=== PATIENT | female | born 1960 | race African-American/Black ===

== ENCOUNTER 2021-02-24 15:50 | Inpatient (IN) | payer OTHER ==
[~2021-02-24] VITALS: Ht 157.5 cm; Wt 81.2 kg
[2021-02-24] MEDS ORDERED: HYDRALAZINE 20MG/ML VIAL IV ONE (16:45)
[2021-02-24] MEDS ORDERED: DEXTROSE 50% WATER 50ML SYRINGE IV ONE (16:45)
[2021-02-24 16:56] LABS: BASOPHILS % 0.5 % (0.0-2.0); HEMATOCRIT. 24.6 % (36.0-48.0); HEMOGLOBIN. 8.3 g/dL (12.0-16.0); LYMPHOCYTES % 24.1 % (20.0-50.0); MEAN CORPUSCULAR VOLUME 121.5 fL (81.0-99.0); MONOCYTES % 3.9 % (2.0-8.0); NEUTROPHILS % 70.5 % (40.0-76.0); RED BLOOD CELL COUNT 2.03 mill/uL (4.2-5.4); RED CELL DISTRIBUTION WIDTH 18.9 % (11.6-14.6)
[2021-02-24] MEDS ORDERED: HALOPERIDOL LACTATE 5MG/ML VIAL IM ONE ×2 (17:00→18:15)
[2021-02-24 17:08] LABS: CHLORIDE 99 mEq/L (98-107)
[2021-02-24 17:12] LABS: ETHANOL BLOOD < 10 mg/dL
[2021-02-24 17:38] LABS: PLATELET ESTIMATE DECREASED
[2021-02-24 17:41] LABS: MEAN PLATELET VOLUME 8.8 fl (7.4-10.4); PLATELET 70 x1000/uL (130-400)
[2021-02-24] MEDS ORDERED: LIDOCAINE HCL 1% 20ML VIAL (Pyxis) INJ INFIL STA (18:04)
[2021-02-24] MEDS ORDERED: PIPERACILLIN/TAZ 3.375G PREMIX 50 ML IV NR (18:15)
[2021-02-24] MEDS ORDERED: PIPERACILLIN/TAZOBACTAM 3.375GM/50ML PREMIX IV ONE (18:15)
[2021-02-24] MEDS ORDERED: FENTANYL CITRATE/PF 50MCG/ML 2ML VIAL IV ONE (18:15)
[2021-02-24] MEDS ORDERED: LIDOCAINE HCL 1% 10 MG/ML 10ML VIAL INJ STA (18:22)
[2021-02-24] MEDS ORDERED: SODIUM CHLORIDE 0.9% 500 ML IV ONE (18:30)
[2021-02-24 18:34] LABS: PROTHROMBIN TIME > 100.0 sec (9.6-11.0)
[2021-02-24 18:37] LABS: INR > 10.0
[2021-02-24] MEDS ORDERED: PHYTONADIONE 10 MG in DEXTROSE 5% WATER 50 ML SUBCUT NR (19:00)
[2021-02-24] MEDS ORDERED: SODIUM CHLORIDE 0.9% 1,000 ML IV ONE ×2 (20:45)
[2021-02-24] MEDS ORDERED: VANCOMYCIN 1 G PREMIX 200 ML IV NR (20:45)
[2021-02-24] MEDS ORDERED: FOLIC ACID 1 MG, THIAMINE HCL 100 MG, MVI, ADULT NO.1 10 ML in DEXTROSE 5% WATER 1,000 ML IV NR (20:45)
[2021-02-24 21:29] LABS: HEPATITIS B SURFACE ANTIGEN NEGATIVE
[2021-02-24] MEDS ORDERED: HALOPERIDOL LACTATE 5MG/ML VIAL IM NR (21:45)
[2021-02-24] MEDS ORDERED: PHYTONADIONE 10MG/ML AMP ONE (21:50)
[2021-02-24] MEDS ORDERED: FENTANYL CITRATE/PF 50MCG/ML 2ML VIAL IV PRN (23:00)
[2021-02-24] MEDS ORDERED: IOHEXOL-300 100 ML BOTTLE ONE (23:17)
[2021-02-25] VITALS (12 sets, daily range): BP systolic 91–125; BP diastolic 33–75
[2021-02-25] MEDS ORDERED: LACTULOSE 20G/30ML UDC PO PRN (03:15)
[2021-02-25] MEDS ORDERED: ONDANSETRON HCL 4MG/2ML INJ IV PRN (03:15)
[2021-02-25] MEDS: LORAZEPAM 2MG/ML CPJ IV PRN ×2 (05:09→21:21)
[2021-02-25] MEDS ORDERED: MAGNESIUM/ALUMINUM HYDROXIDE/SIMETHICONE 30ML UDC PO PRN (07:45)
[2021-02-25] MEDS ORDERED: CLONIDINE 0.1MG TABLET PO PRN (07:45)
[2021-02-25] MEDS ORDERED: TRAMADOL 50MG TABLET PO PRN (07:45)
[2021-02-25] MEDS ORDERED: NALOXONE HCL 0.4MG/ML VIAL IV PRN (08:00)
[2021-02-25 08:09] LABS: BG BASE EXCESS -9.4 mmol/L (-2.0-2.0); BG CARBOXYHEMOGLOBIN 0.4 % (0.5-1.5); BG DEOXYHEMOGLOBIN 8.3 % (0.0-5.0); BG FRACTION INSPIRED OXYGEN 21; BG HCO3 ACT 14.7 mmol/L (22.0-26.0); BG METHEMOGLOBIN 0.2 % (0.0-1.5); BG OXYGEN SATURATION 91.6 % (92.0-98.5); BG OXYHEMOGLOBIN 91.1 % (94.0-97.0); BG PCO2 25.8 mmHg (35.0-45.0); BG PH 7.374 (7.350-7.450); BG PO2 70.3 mmHg (75.0-100.0); BG SAMPLE SITE LEFT RADIAL; BG TOTAL HEMOGLOBIN 7.9 g/dL (12.0-18.0); BG VENT MODE ROOM AIR
[2021-02-25] MEDS: PANTOPRAZOLE SODIUM 40 MG/VIAL IV SCH (09:27)
[2021-02-25] MEDS: FUROSEMIDE 40MG TABLET PO SCH (09:28)
[2021-02-25 10:28] LABS: HEMATOCRIT 24.9 % (36.0-48.0); HEMOGLOBIN 8.3 g/dL (12.0-16.0); MEAN CORPUSCULAR HEMOGLOBIN 41.7 pg (28.0-32.0); MEAN CORPUSCULAR VOLUME 125.6 fL (81.0-99.0); PLATELET 52 x1000/uL (130-400); RED BLOOD CELL COUNT 1.98 mill/uL (4.2-5.4); RED CELL DISTRIBUTION WIDTH 20.2 % (11.6-14.6)
[2021-02-25 10:51] LABS: CHLORIDE 98 mEq/L (98-107)
[2021-02-25 11:08] LABS: INR 3.1; PROTHROMBIN TIME 30.8 sec (9.6-11.0)
[2021-02-25] MEDS ORDERED: POTASSIUM CHLORIDE 20MEQ TABLET SR PO NR (13:30)
[2021-02-25] MEDS: LACTULOSE 20G/30ML UDC PO SCH ×2 (15:33→21:22)
[2021-02-25] MEDS: KCL 20MEQ/100ML PREMIX 100 ML IV SCH ×2 (15:43→17:57)
[2021-02-25] MEDS: RIFAXIMIN 200MG TABLET PO SCH (21:22)
[2021-02-25] MEDS: CEFTRIAXONE 1,000 MG in DEXTROSE 5% WATER 50 ML IV SCH (22:28)
[2021-02-25 23:05] LABS: BG BASE EXCESS -3.8 mmol/L (-2.0-2.0); BG CARBOXYHEMOGLOBIN 0.3 % (0.5-1.5); BG DEOXYHEMOGLOBIN 43.3 % (0.0-5.0); BG FRACTION INSPIRED OXYGEN 100; BG HCO3 ACT 21.2 mmol/L (22.0-26.0); BG METHEMOGLOBIN 0.7 % (0.0-1.5); BG OXYGEN SATURATION 56.3 % (92.0-98.5); BG OXYHEMOGLOBIN 55.7 % (94.0-97.0); BG PCO2 37.9 mmHg (35.0-45.0); BG PH 7.365 (7.350-7.450); BG PO2 34.5 mmHg (75.0-100.0); BG SAMPLE SITE RIGHT BRACHIAL; BG TOTAL HEMOGLOBIN 7.5 g/dL (12.0-18.0); BG VENT MODE MASK - NRB
[2021-02-25 23:41] LABS: BG BASE EXCESS -6.2 mmol/L (-2.0-2.0); BG CARBOXYHEMOGLOBIN 0.1 % (0.5-1.5); BG DEOXYHEMOGLOBIN 21.4 % (0.0-5.0); BG FRACTION INSPIRED OXYGEN 100; BG HCO3 ACT 19.2 mmol/L (22.0-26.0); BG METHEMOGLOBIN 0.3 % (0.0-1.5); BG OXYGEN SATURATION 78.5 % (92.0-98.5); BG OXYHEMOGLOBIN 78.2 % (94.0-97.0); BG PCO2 37.5 mmHg (35.0-45.0); BG PH 7.328 (7.350-7.450); BG PO2 51.5 mmHg (75.0-100.0); BG TOTAL HEMOGLOBIN 8.2 g/dL (12.0-18.0); BG VENT MODE MASK - NRB
[2021-02-26] VITALS (19 sets, daily range): BP systolic 86–136; BP diastolic 47–91
[2021-02-26 00:13] LABS: HEMATOCRIT 21.6 % (36.0-48.0); HEMOGLOBIN 7.4 g/dL (12.0-16.0)
[2021-02-26 00:24] LABS: INR 2.1; PROTHROMBIN TIME 21.7 sec (9.6-11.0)
[2021-02-26 00:26] LABS: TOTAL IRON BINDING CAPACITY 83 ug/dL (250-450)
[2021-02-26 01:26] LABS: BG BASE EXCESS -4.5 mmol/L (-2.0-2.0); BG CARBOXYHEMOGLOBIN 0.3 % (0.5-1.5); BG DEOXYHEMOGLOBIN 5.3 % (0.0-5.0); BG HCO3 ACT 19.3 mmol/L (22.0-26.0); BG METHEMOGLOBIN 0.5 % (0.0-1.5); BG OXYGEN SATURATION 94.7 % (92.0-98.5); BG OXYHEMOGLOBIN 93.9 % (94.0-97.0); BG PCO2 29.9 mmHg (35.0-45.0); BG PH 7.427 (7.350-7.450); BG PO2 79.7 mmHg (75.0-100.0); BG TOTAL HEMOGLOBIN 7.6 g/dL (12.0-18.0)
[2021-02-26] MEDS: IPRATROPIUM/ALBUTEROL 0.5-3(2.5)MG/3ML NEB HHN SCH ×5 (01:55→16:00)
[2021-02-26] MEDS ORDERED: DEXT 5%/0.45% NACL 1000ML 1,000 ML IV SCH (02:00)
[2021-02-26] MEDS: LACTULOSE 20G/30ML UDC PO SCH ×3 (05:37→22:03)
[2021-02-26] MEDS ORDERED: SODIUM CHLORIDE 0.9% 1000ML BAG (SEPSIS BOLUS) IV ONE (06:45)
[2021-02-26] MEDS ORDERED: SODIUM CHLORIDE 0.9% 500 ML IV SCH (06:45)
[2021-02-26 07:26] LABS: CHLORIDE 104 mEq/L (98-107)
[2021-02-26 07:34] LABS: PHOSPHORUS 1.8 mg/dL (2.5-4.9)
[2021-02-26 07:36] LABS: T4 FREE 1.23 ng/dL (0.76-1.46)
[2021-02-26 08:10] LABS: MEAN CORPUSCULAR HEMOGLOBIN 41.4 pg (28.0-32.0); MEAN CORPUSCULAR VOLUME 124.1 fL (81.0-99.0); MEAN PLATELET VOLUME 9.6 fl (7.4-10.4); RED BLOOD CELL COUNT 1.62 mill/uL (4.2-5.4); RED CELL DISTRIBUTION WIDTH 18.7 % (11.6-14.6)
[2021-02-26 08:14] LABS: HEMOGLOBIN. 6.7 g/dL (12.0-16.0)
[2021-02-26 08:15] LABS: HEMATOCRIT. 20.1 % (36.0-48.0)
[2021-02-26] MEDS ORDERED: FUROSEMIDE 40MG/4ML VIAL IVP SCH (10:00)
[2021-02-26] MEDS: FUROSEMIDE 40MG TABLET PO SCH (10:34)
[2021-02-26] MEDS: PANTOPRAZOLE SODIUM 40 MG/VIAL IV SCH (10:34)
[2021-02-26] MEDS: RIFAXIMIN 200MG TABLET PO SCH ×2 (10:34→22:04)
[2021-02-26] MEDS ORDERED: SODIUM PHOS,M-BASIC-D-BASIC 15 MM in DEXT 5% WATER 245 ML IV SCH (12:00)
[2021-02-26 12:46] LABS: NUCLEATED RED BLOOD CELLS 6 /100 WBC
[2021-02-26 12:47] LABS: PLATELET ESTIMATE MARKEDLY DECREASED
[2021-02-26 12:50] LABS: PLATELET 46 x1000/uL (130-400)
[2021-02-26] MEDS: CEFTRIAXONE 1,000 MG in DEXTROSE 5% WATER 50 ML IV SCH (16:18)
[2021-02-26 21:00] LABS: HEMOGLOBIN 7.8 g/dL (12.0-16.0)
[2021-02-26] MEDS: LORAZEPAM 2MG/ML CPJ IV PRN (22:46)
[2021-02-27] VITALS (16 sets, daily range): BP systolic 94–136; BP diastolic 47–76
[2021-02-27] MEDS: IPRATROPIUM/ALBUTEROL 0.5-3(2.5)MG/3ML NEB HHN SCH ×5 (02:11→20:58)
[2021-02-27] MEDS: LACTULOSE 20G/30ML UDC PO SCH ×3 (05:31→21:31)
[2021-02-27] MEDS: LORAZEPAM 2MG/ML CPJ IV PRN ×2 (05:55→11:21)
[2021-02-27 06:18] LABS: CHLORIDE 105 mEq/L (98-107)
[2021-02-27 06:24] LABS: PHOSPHORUS 3.4 mg/dL (2.5-4.9)
[2021-02-27 06:29] LABS: BASOPHILS % 0.5 % (0.0-2.0); EOSINOPHILS % 0.7 % (0.0-5.0); HEMATOCRIT. 26.5 % (36.0-48.0); HEMOGLOBIN. 9.3 g/dL (12.0-16.0); LYMPHOCYTES % 17.3 % (20.0-50.0); MEAN CORPUSCULAR HEMOGLOBIN 39.3 pg (28.0-32.0); MEAN CORPUSCULAR VOLUME 112.2 fL (81.0-99.0); MONOCYTES % 3.7 % (2.0-8.0); NEUTROPHILS % 77.8 % (40.0-76.0); RED BLOOD CELL COUNT 2.37 mill/uL (4.2-5.4); RED CELL DISTRIBUTION WIDTH 21.4 % (11.6-14.6)
[2021-02-27 07:45] LABS: FOLIC ACID (FOLATE) SERUM 4.1 ng/mL (>5.38)
[2021-02-27] MEDS ORDERED: POTASSIUM CHLORIDE 20MEQ/PACKET PO NR (09:30)
[2021-02-27] MEDS: PANTOPRAZOLE SODIUM 40 MG/VIAL IV SCH (10:44)
[2021-02-27] MEDS: FUROSEMIDE 40MG TABLET PO SCH (10:45)
[2021-02-27] MEDS: RIFAXIMIN 200MG TABLET PO SCH (10:45)
[2021-02-27] MEDS: FOLIC ACID/VITAMIN B COMP W-C TABLET PO SCH (10:45)
[2021-02-27 10:51] LABS: MEAN PLATELET VOLUME 11.8 fl (7.4-10.4); PLATELET 56 x1000/uL (130-400); PLATELET ESTIMATE DECREASED
[2021-02-27] MEDS ORDERED: LORAZEPAM 2MG/ML CPJ IV PRN (15:15)
[2021-02-27] MEDS: CEFTRIAXONE 1,000 MG in DEXTROSE 5% WATER 50 ML IV SCH (17:00)
[2021-02-27 17:12] LABS: BG BASE EXCESS -2.2 mmol/L (-2.0-2.0); BG CARBOXYHEMOGLOBIN 0.3 % (0.5-1.5); BG DEOXYHEMOGLOBIN 1.2 % (0.0-5.0); BG FRACTION INSPIRED OXYGEN 100; BG HCO3 ACT 22.1 mmol/L (22.0-26.0); BG OXYGEN SATURATION 98.8 % (92.0-98.5); BG OXYHEMOGLOBIN 97.5 % (94.0-97.0); BG PCO2 36.4 mmHg (35.0-45.0); BG PH 7.402 (7.350-7.450); BG PO2 175.5 mmHg (75.0-100.0); BG SAMPLE SITE RIGHT BRACHIAL; BG TOTAL HEMOGLOBIN 10.1 g/dL (12.0-18.0); BG VENT MODE MASK - BIPAP
[2021-02-27 18:00] LABS: INR 2.4; PROTHROMBIN TIME 24.3 sec (9.6-11.0)
[2021-02-27] MEDS: RIFAXIMIN 550 MG TABLET PO SCH (21:31)
[2021-02-28] VITALS (86 sets, daily range): BP systolic 61–175; BP diastolic 32–111
[2021-02-28] MEDS: IPRATROPIUM/ALBUTEROL 0.5-3(2.5)MG/3ML NEB HHN SCH ×5 (01:29→20:00)
[2021-02-28 03:40] LABS: BG CARBOXYHEMOGLOBIN 0.3 % (0.5-1.5); BG DEOXYHEMOGLOBIN 28.1 % (0.0-5.0); BG FRACTION INSPIRED OXYGEN 100; BG HCO3 ACT 24.6 mmol/L (22.0-26.0); BG METHEMOGLOBIN 0.3 % (0.0-1.5); BG OXYGEN SATURATION 71.7 % (92.0-98.5); BG OXYHEMOGLOBIN 71.3 % (94.0-97.0); BG PCO2 71.5 mmHg (35.0-45.0); BG PH 7.154 (7.350-7.450); BG PO2 50.4 mmHg (75.0-100.0); BG SAMPLE SITE RIGHT RADIAL; BG TOTAL HEMOGLOBIN 10.9 g/dL (12.0-18.0); BG VENT MODE MASK - BIPAP
[2021-02-28] MEDS ORDERED: PROPOFOL 10MG/ML 100ML 100 ML IV PRN (05:30)
[2021-02-28] MEDS: FENTANYL CITRATE/PF 2,500 MCG in SODIUM CHLORIDE 0.9% 200 ML IV PRN (05:59)
[2021-02-28 06:12] LABS: BASOPHILS % 0.5 % (0.0-2.0); EOSINOPHILS % 1.5 % (0.0-5.0); HEMATOCRIT. 24.9 % (36.0-48.0); HEMOGLOBIN. 8.3 g/dL (12.0-16.0); LYMPHOCYTES % 14.5 % (20.0-50.0); MEAN CORPUSCULAR HEMOGLOBIN 37.9 pg (28.0-32.0); MEAN CORPUSCULAR VOLUME 114.2 fL (81.0-99.0); MEAN PLATELET VOLUME 9.6 fl (7.4-10.4); MONOCYTES % 3.4 % (2.0-8.0); NEUTROPHILS % 80.1 % (40.0-76.0); PLATELET 56 x1000/uL (130-400); RED BLOOD CELL COUNT 2.18 mill/uL (4.2-5.4); RED CELL DISTRIBUTION WIDTH 22.2 % (11.6-14.6)
[2021-02-28 06:16] LABS: INR 1.8; PROTHROMBIN TIME 18.4 sec (9.6-11.0)
[2021-02-28 06:17] LABS: CHLORIDE 112 mEq/L (98-107)
[2021-02-28 06:19] LABS: BG CARBOXYHEMOGLOBIN 0.3 % (0.5-1.5); BG DEOXYHEMOGLOBIN 0.8 % (0.0-5.0); BG FRACTION INSPIRED OXYGEN 100; BG HCO3 ACT 21.3 mmol/L (22.0-26.0); BG METHEMOGLOBIN 0.4 % (0.0-1.5); BG OXYGEN SATURATION 99.2 % (92.0-98.5); BG OXYHEMOGLOBIN 98.5 % (94.0-97.0); BG PCO2 40.2 mmHg (35.0-45.0); BG PH 7.343 (7.350-7.450); BG PO2 231.3 mmHg (75.0-100.0); BG SAMPLE SITE RIGHT RADIAL; BG TOTAL HEMOGLOBIN 9.8 g/dL (12.0-18.0); BG VENT MODE VENT - AC
[2021-02-28] MEDS: LACTULOSE 20G/30ML UDC PO SCH ×3 (06:25→21:04)
[2021-02-28] MEDS ORDERED: ETOMIDATE 2MG/ML 10ML VIAL IV ONE (07:47)
[2021-02-28] MEDS: FUROSEMIDE 40MG TABLET PO SCH (08:42)
[2021-02-28] MEDS: PANTOPRAZOLE SODIUM 40 MG/VIAL IV SCH (08:42)
[2021-02-28] MEDS: RIFAXIMIN 550 MG TABLET PO SCH ×2 (08:42→21:04)
[2021-02-28] MEDS: FOLIC ACID/VITAMIN B COMP W-C TABLET PO SCH (08:42)
[2021-02-28] MEDS: PHENYLEPHRINE 100 MG in DEXT 5% WATER 240 ML IV PRN ×2 (08:52→18:21)
[2021-02-28] MEDS ORDERED: RISPERIDONE 0.5MG TABLET PO SCH (09:00)
[2021-02-28] MEDS: PHYTONADIONE 10MG/ML AMP SUBCUT SCH (10:43)
[2021-02-28] MEDS: KCL 20MEQ/100ML PREMIX 100 ML IV SCH ×2 (10:43→13:32)
[2021-02-28] MEDS: VASOPRESSIN 20 UNIT in SODIUM CHLORIDE 0.9% 99 ML IV PRN ×2 (11:07→17:38)
[2021-02-28] MEDS: METOCLOPRAMIDE HCL 10MG/2ML VIAL IV SCH ×2 (11:51→17:37)
[2021-02-28] MEDS: NOREPINEPHRINE 32 MG in DEXT 5% WATER 218 ML IV PRN ×2 (11:52→20:23)
[2021-02-28] MEDS: CEFEPIME 1,000 MG in DEXTROSE 5% WATER 50 ML IV SCH (12:17)
[2021-03-01] VITALS (97 sets, daily range): BP systolic 44–135; BP diastolic 19–83
[2021-03-01] MEDS: METOCLOPRAMIDE HCL 10MG/2ML VIAL IV SCH ×4 (00:06→18:07)
[2021-03-01] MEDS: CEFEPIME 1,000 MG in DEXTROSE 5% WATER 50 ML IV SCH ×2 (00:06→12:03)
[2021-03-01] MEDS: VASOPRESSIN 20 UNIT in SODIUM CHLORIDE 0.9% 99 ML IV PRN ×3 (02:59→22:28)
[2021-03-01] MEDS: PHENYLEPHRINE 100 MG in DEXT 5% WATER 240 ML IV PRN ×4 (02:59→22:27)
[2021-03-01] MEDS: IPRATROPIUM/ALBUTEROL 0.5-3(2.5)MG/3ML NEB HHN SCH ×6 (04:59→20:19)
[2021-03-01] MEDS: LACTULOSE 20G/30ML UDC PO SCH ×3 (05:36→21:38)
[2021-03-01] MEDS: NOREPINEPHRINE 32 MG in DEXT 5% WATER 218 ML IV PRN ×2 (06:20→08:31)
[2021-03-01 06:37] LABS: INR 2.3; PROTHROMBIN TIME 22.8 sec (9.6-11.0)
[2021-03-01 06:58] LABS: HEMATOCRIT. 29.6 % (36.0-48.0); HEMOGLOBIN. 9.6 g/dL (12.0-16.0); MEAN CORPUSCULAR HEMOGLOBIN 38.5 pg (28.0-32.0); MEAN CORPUSCULAR VOLUME 118.6 fL (81.0-99.0); MEAN PLATELET VOLUME 9.7 fl (7.4-10.4); RED CELL DISTRIBUTION WIDTH 22.1 % (11.6-14.6)
[2021-03-01 07:04] LABS: PLATELET 46 x1000/uL (130-400)
[2021-03-01] MEDS: FUROSEMIDE 40MG TABLET PO SCH (08:22)
[2021-03-01] MEDS: FOLIC ACID/VITAMIN B COMP W-C TABLET PO SCH (08:22)
[2021-03-01] MEDS: PANTOPRAZOLE SODIUM 40 MG/VIAL IV SCH (08:22)
[2021-03-01] MEDS: RIFAXIMIN 550 MG TABLET PO SCH ×2 (08:23→21:38)
[2021-03-01] MEDS: PHYTONADIONE 10MG/ML AMP SUBCUT SCH (08:23)
[2021-03-01 09:16] LABS: BG BASE EXCESS -7.5 mmol/L (-2.0-2.0); BG CARBOXYHEMOGLOBIN 0.4 % (0.5-1.5); BG DEOXYHEMOGLOBIN 3.6 % (0.0-5.0); BG FRACTION INSPIRED OXYGEN 100; BG HCO3 ACT 17.6 mmol/L (22.0-26.0); BG METHEMOGLOBIN 0.3 % (0.0-1.5); BG OXYGEN SATURATION 96.4 % (92.0-98.5); BG OXYHEMOGLOBIN 95.7 % (94.0-97.0); BG PCO2 34.5 mmHg (35.0-45.0); BG PH 7.326 (7.350-7.450); BG PO2 91.3 mmHg (75.0-100.0); BG SAMPLE SITE RIGHT RADIAL; BG TOTAL HEMOGLOBIN 10.9 g/dL (12.0-18.0); BG VENT MODE VENT - AC
[2021-03-01 10:43] LABS: NUCLEATED RED BLOOD CELLS 11 /100 WBC; PLATELET ESTIMATE MARKEDLY DECREASED
[2021-03-01] MEDS ORDERED: SODIUM CHLORIDE 0.9% 1,000 ML IV SCH (11:00)
[2021-03-01] MEDS: FENTANYL CITRATE/PF 2,500 MCG in SODIUM CHLORIDE 0.9% 200 ML IV PRN (11:30)
[2021-03-01] MEDS: SODIUM BICARBONATE 100 MEQ in DEXTROSE 5% WATER 1,000 ML IV SCH (12:02)
[2021-03-01] MEDS ORDERED: VANCOMYCIN 1250MG in DEXTROSE 5% WATER 250ML IV SCH (13:00)
[2021-03-01 14:23] LABS: CREATINE KINASE 131 IU/L (26-192)
[2021-03-01] MEDS ORDERED: SODIUM POLYSTYRENE SULFONATE 15 G/60 ML BOT PO NR (17:00)
[2021-03-02] VITALS (102 sets, daily range): BP systolic 61–117; BP diastolic 25–73
[2021-03-02] MEDS: METOCLOPRAMIDE HCL 10MG/2ML VIAL IV SCH ×4 (00:20→17:37)
[2021-03-02] MEDS: CEFEPIME 1,000 MG in DEXTROSE 5% WATER 50 ML IV SCH ×2 (00:21→13:32)
[2021-03-02] MEDS: IPRATROPIUM/ALBUTEROL 0.5-3(2.5)MG/3ML NEB HHN SCH ×6 (00:29→20:15)
[2021-03-02] MEDS: LACTULOSE 20G/30ML UDC PO SCH ×3 (05:59→21:58)
[2021-03-02 06:00] LABS: INR 2.7; PROTHROMBIN TIME 26.4 sec (9.6-11.0)
[2021-03-02 06:01] LABS: HEMATOCRIT. 27.6 % (36.0-48.0); HEMOGLOBIN. 9.3 g/dL (12.0-16.0); MEAN CORPUSCULAR HEMOGLOBIN 39.5 pg (28.0-32.0); MEAN CORPUSCULAR VOLUME 117.9 fL (81.0-99.0); MEAN PLATELET VOLUME 10.3 fl (7.4-10.4); RED BLOOD CELL COUNT 2.34 mill/uL (4.2-5.4); RED CELL DISTRIBUTION WIDTH 23.3 % (11.6-14.6)
[2021-03-02 06:30] LABS: PLATELET 28 x1000/uL (130-400)
[2021-03-02 06:34] LABS: BG BASE EXCESS -6.5 mmol/L (-2.0-2.0); BG CARBOXYHEMOGLOBIN 0.8 % (0.5-1.5); BG DEOXYHEMOGLOBIN 31.4 % (0.0-5.0); BG FRACTION INSPIRED OXYGEN 100; BG HCO3 ACT 19.9 mmol/L (22.0-26.0); BG METHEMOGLOBIN 0.1 % (0.0-1.5); BG OXYGEN SATURATION 68.3 % (92.0-98.5); BG OXYHEMOGLOBIN 67.7 % (94.0-97.0); BG PCO2 43.6 mmHg (35.0-45.0); BG PH 7.278 (7.350-7.450); BG PO2 40.7 mmHg (75.0-100.0); BG VENT MODE VENT - AC
[2021-03-02 09:18] LABS: BG BASE EXCESS -5.7 mmol/L (-2.0-2.0); BG CARBOXYHEMOGLOBIN 1.1 % (0.5-1.5); BG DEOXYHEMOGLOBIN 5.7 % (0.0-5.0); BG FRACTION INSPIRED OXYGEN 1007; BG HCO3 ACT 18.7 mmol/L (22.0-26.0); BG METHEMOGLOBIN 0.3 % (0.0-1.5); BG OXYGEN SATURATION 94.2 % (92.0-98.5); BG OXYHEMOGLOBIN 92.9 % (94.0-97.0); BG PCO2 32.5 mmHg (35.0-45.0); BG PH 7.378 (7.350-7.450); BG PO2 73.8 mmHg (75.0-100.0); BG SAMPLE SITE RIGHT RADIAL; BG TOTAL HEMOGLOBIN 9.3 g/dL (12.0-18.0); BG TOTAL RESPIRATORY RATE 30 b/min; BG VENT MODE VENT - AC
[2021-03-02] MEDS: PHYTONADIONE 10MG/ML AMP SUBCUT SCH (10:07)
[2021-03-02] MEDS: RIFAXIMIN 550 MG TABLET PO SCH ×2 (10:07→20:57)
[2021-03-02] MEDS: SODIUM BICARBONATE 100 MEQ in DEXTROSE 5% WATER 1,000 ML IV SCH (10:07)
[2021-03-02] MEDS: FOLIC ACID/VITAMIN B COMP W-C TABLET PO SCH (10:07)
[2021-03-02] MEDS: PANTOPRAZOLE SODIUM 40 MG/VIAL IV SCH (10:08)
[2021-03-02] MEDS: PHENYLEPHRINE 100 MG in DEXT 5% WATER 240 ML IV PRN ×2 (10:09→20:19)
[2021-03-02 10:23] LABS: NUCLEATED RED BLOOD CELLS 4 /100 WBC; PLATELET ESTIMATE MARKEDLY DECREASED
[2021-03-02] MEDS ORDERED: VANCOMYCIN 750 MG PREMIX 150 ML IV SCH (13:00)
[2021-03-03] VITALS (96 sets, daily range): BP systolic 79–126; BP diastolic 40–75
[2021-03-03] MEDS: METOCLOPRAMIDE HCL 10MG/2ML VIAL IV SCH ×4 (00:03→17:15)
[2021-03-03] MEDS: IPRATROPIUM/ALBUTEROL 0.5-3(2.5)MG/3ML NEB HHN SCH ×6 (00:35→20:56)
[2021-03-03] MEDS: CEFEPIME 1,000 MG in DEXTROSE 5% WATER 50 ML IV SCH ×2 (01:09→12:23)
[2021-03-03] MEDS: PHENYLEPHRINE 100 MG in DEXT 5% WATER 240 ML IV PRN ×3 (05:15→22:12)
[2021-03-03] MEDS: SODIUM BICARBONATE 100 MEQ in DEXTROSE 5% WATER 1,000 ML IV SCH ×2 (05:16→21:00)
[2021-03-03] MEDS: LACTULOSE 20G/30ML UDC PO SCH ×3 (05:31→22:11)
[2021-03-03 06:33] LABS: BASOPHILS % 0.3 % (0.0-2.0); EOSINOPHILS % 6.9 % (0.0-5.0); HEMATOCRIT. 28.8 % (36.0-48.0); HEMOGLOBIN. 9.6 g/dL (12.0-16.0); LYMPHOCYTES % 15.2 % (20.0-50.0); MEAN CORPUSCULAR HEMOGLOBIN 38.4 pg (28.0-32.0); MEAN CORPUSCULAR VOLUME 115.4 fL (81.0-99.0); MEAN PLATELET VOLUME 8.7 fl (7.4-10.4); MONOCYTES % 0.9 % (2.0-8.0); NEUTROPHILS % 76.7 % (40.0-76.0)
[2021-03-03 06:40] LABS: INR 2.7; PROTHROMBIN TIME 27.2 sec (9.6-11.0)
[2021-03-03 06:52] LABS: PLATELET 18 x1000/uL (130-400)
[2021-03-03] MEDS: PANTOPRAZOLE SODIUM 40 MG/VIAL IV SCH (08:00)
[2021-03-03] MEDS: PHYTONADIONE 10MG/ML AMP SUBCUT SCH (08:00)
[2021-03-03] MEDS: FOLIC ACID/VITAMIN B COMP W-C TABLET PO SCH (08:01)
[2021-03-03] MEDS: NOREPINEPHRINE 32 MG in DEXT 5% WATER 218 ML IV PRN (08:01)
[2021-03-03] MEDS: RIFAXIMIN 550 MG TABLET PO SCH ×2 (08:01→22:11)
[2021-03-03 08:44] LABS: BG BASE EXCESS -4.9 mmol/L (-2.0-2.0); BG CARBOXYHEMOGLOBIN 0.5 % (0.5-1.5); BG DEOXYHEMOGLOBIN 10.5 % (0.0-5.0); BG FRACTION INSPIRED OXYGEN 90; BG HCO3 ACT 19.3 mmol/L (22.0-26.0); BG METHEMOGLOBIN 0.3 % (0.0-1.5); BG OXYGEN SATURATION 89.4 % (92.0-98.5); BG OXYHEMOGLOBIN 88.7 % (94.0-97.0); BG PCO2 32.4 mmHg (35.0-45.0); BG PH 7.392 (7.350-7.450); BG PO2 61.9 mmHg (75.0-100.0); BG TOTAL HEMOGLOBIN 10.2 g/dL (12.0-18.0); BG VENT MODE VENT - AC
[2021-03-04] VITALS (111 sets, daily range): BP systolic 62–131; BP diastolic 37–77
[2021-03-04] MEDS: IPRATROPIUM/ALBUTEROL 0.5-3(2.5)MG/3ML NEB HHN SCH ×6 (00:17→20:30)
[2021-03-04] MEDS: METOCLOPRAMIDE HCL 10MG/2ML VIAL IV SCH ×4 (00:45→17:50)
[2021-03-04] MEDS: CEFEPIME 1,000 MG in DEXTROSE 5% WATER 50 ML IV SCH ×2 (01:39→12:16)
[2021-03-04 05:51] LABS: INR 2.9; PROTHROMBIN TIME 28.3 sec (9.6-11.0)
[2021-03-04 05:54] LABS: HEMATOCRIT. 24.5 % (36.0-48.0); HEMOGLOBIN. 8.2 g/dL (12.0-16.0); MEAN CORPUSCULAR HEMOGLOBIN 38.7 pg (28.0-32.0); MEAN CORPUSCULAR VOLUME 116.2 fL (81.0-99.0); RED BLOOD CELL COUNT 2.11 mill/uL (4.2-5.4); RED CELL DISTRIBUTION WIDTH 23.9 % (11.6-14.6)
[2021-03-04] MEDS: LACTULOSE 20G/30ML UDC PO SCH ×3 (06:22→21:37)
[2021-03-04 06:37] LABS: PLATELET 60 x1000/uL (130-400)
[2021-03-04 06:43] LABS: NUCLEATED RED BLOOD CELLS 1 /100 WBC; PLATELET ESTIMATE DECREASED
[2021-03-04] MEDS: PHENYLEPHRINE 100 MG in DEXT 5% WATER 240 ML IV PRN ×2 (07:30→16:10)
[2021-03-04] MEDS ORDERED: POTASSIUM CHLORIDE 20MEQ/PACKET PO SCH (08:15)
[2021-03-04] MEDS: RIFAXIMIN 550 MG TABLET PO SCH ×2 (08:25→21:37)
[2021-03-04] MEDS: FOLIC ACID/VITAMIN B COMP W-C TABLET PO SCH (08:25)
[2021-03-04] MEDS: PANTOPRAZOLE SODIUM 40 MG/VIAL IV SCH (08:25)
[2021-03-04 09:15] LABS: BG DEOXYHEMOGLOBIN 10.6 % (0.0-5.0); BG FRACTION INSPIRED OXYGEN 80; BG HCO3 ACT 20.2 mmol/L (22.0-26.0); BG METHEMOGLOBIN 0.2 % (0.0-1.5); BG OXYGEN SATURATION 89.3 % (92.0-98.5); BG OXYHEMOGLOBIN 88.2 % (94.0-97.0); BG PCO2 33.4 mmHg (35.0-45.0); BG PH 7.399 (7.350-7.450); BG PO2 61.9 mmHg (75.0-100.0); BG SAMPLE SITE RIGHT RADIAL; BG TOTAL HEMOGLOBIN 9.7 g/dL (12.0-18.0); BG TOTAL RESPIRATORY RATE 30 b/min; BG VENT MODE VENT - AC
[2021-03-04] MEDS: NOREPINEPHRINE 32 MG in DEXT 5% WATER 218 ML IV PRN (16:45)
[2021-03-04] MEDS: SODIUM BICARBONATE 100 MEQ in DEXTROSE 5% WATER 1,000 ML IV SCH (17:50)
[2021-03-05] VITALS (74 sets, daily range): BP systolic 67–192; BP diastolic 37–112
[2021-03-05] MEDS: PHENYLEPHRINE 100 MG in DEXT 5% WATER 240 ML IV PRN ×3 (00:05→17:39)
[2021-03-05] MEDS: METOCLOPRAMIDE HCL 10MG/2ML VIAL IV SCH ×4 (00:05→18:09)
[2021-03-05] MEDS: CEFEPIME 1,000 MG in DEXTROSE 5% WATER 50 ML IV SCH ×2 (00:06→12:18)
[2021-03-05] MEDS: IPRATROPIUM/ALBUTEROL 0.5-3(2.5)MG/3ML NEB HHN SCH ×6 (00:21→20:43)
[2021-03-05] MEDS: LACTULOSE 20G/30ML UDC PO SCH ×3 (05:29→21:51)
[2021-03-05 06:26] LABS: HEMOGLOBIN. 8.9 g/dL (12.0-16.0); MEAN CORPUSCULAR HEMOGLOBIN 39.5 pg (28.0-32.0); MEAN CORPUSCULAR VOLUME 115.1 fL (81.0-99.0); RED BLOOD CELL COUNT 2.26 mill/uL (4.2-5.4); RED CELL DISTRIBUTION WIDTH 23.6 % (11.6-14.6)
[2021-03-05 08:01] LABS: MEAN PLATELET VOLUME 10.3 fl (7.4-10.4); PLATELET 30 x1000/uL (130-400)
[2021-03-05] MEDS: PANTOPRAZOLE SODIUM 40 MG/VIAL IV SCH (08:44)
[2021-03-05] MEDS: FOLIC ACID/VITAMIN B COMP W-C TABLET PO SCH (08:44)
[2021-03-05] MEDS: SODIUM BICARBONATE 100 MEQ in DEXTROSE 5% WATER 1,000 ML IV SCH (08:45)
[2021-03-05 08:55] LABS: BG BASE EXCESS -2.5 mmol/L (-2.0-2.0); BG CARBOXYHEMOGLOBIN 1.7 % (0.5-1.5); BG DEOXYHEMOGLOBIN 11.7 % (0.0-5.0); BG FRACTION INSPIRED OXYGEN 80; BG HCO3 ACT 21.2 mmol/L (22.0-26.0); BG METHEMOGLOBIN 0.3 % (0.0-1.5); BG OXYGEN SATURATION 88.1 % (92.0-98.5); BG OXYHEMOGLOBIN 86.3 % (94.0-97.0); BG PCO2 32.4 mmHg (35.0-45.0); BG PH 7.433 (7.350-7.450); BG PO2 54.4 mmHg (75.0-100.0); BG SAMPLE SITE RIGHT RADIAL; BG TOTAL HEMOGLOBIN 9.8 g/dL (12.0-18.0); BG TOTAL RESPIRATORY RATE 30 b/min; BG VENT MODE VENT - AC
[2021-03-05 09:32] LABS: NUCLEATED RED BLOOD CELLS 2 /100 WBC; PLATELET ESTIMATE MARKEDLY DECREASED
[2021-03-05] MEDS ORDERED: FUROSEMIDE 20MG/2ML VIAL IVP SCH (10:45)
[2021-03-05] MEDS: NOREPINEPHRINE 32 MG in DEXT 5% WATER 218 ML IV PRN ×2 (11:45→22:36)
[2021-03-05] MEDS: VASOPRESSIN 20 UNIT in SODIUM CHLORIDE 0.9% 99 ML IV PRN (18:22)
[2021-03-06] VITALS (71 sets, daily range): BP systolic 59–164; BP diastolic 28–78
[2021-03-06] MEDS: METOCLOPRAMIDE HCL 10MG/2ML VIAL IV SCH ×5 (00:42→23:22)
[2021-03-06] MEDS: VASOPRESSIN 20 UNIT in SODIUM CHLORIDE 0.9% 99 ML IV PRN ×3 (01:14→20:13)
[2021-03-06] MEDS: IPRATROPIUM/ALBUTEROL 0.5-3(2.5)MG/3ML NEB HHN SCH ×2 (01:31→04:35)
[2021-03-06] MEDS: PHENYLEPHRINE 100 MG in DEXT 5% WATER 240 ML IV PRN ×3 (02:44→18:49)
[2021-03-06] MEDS: LACTULOSE 20G/30ML UDC PO SCH ×3 (05:48→21:15)
[2021-03-06 06:19] LABS: BASOPHILS % 0.9 % (0.0-2.0); EOSINOPHILS % 5.1 % (0.0-5.0); HEMATOCRIT. 30.4 % (36.0-48.0); HEMOGLOBIN. 9.9 g/dL (12.0-16.0); LYMPHOCYTES % 6.3 % (20.0-50.0); MEAN CORPUSCULAR HEMOGLOBIN 38.2 pg (28.0-32.0); MEAN CORPUSCULAR VOLUME 116.8 fL (81.0-99.0); MONOCYTES % 1.1 % (2.0-8.0); NEUTROPHILS % 86.6 % (40.0-76.0); RED CELL DISTRIBUTION WIDTH 23.6 % (11.6-14.6)
[2021-03-06] MEDS: NOREPINEPHRINE 32 MG in DEXT 5% WATER 218 ML IV PRN ×3 (06:55→20:12)
[2021-03-06 07:03] LABS: PLATELET 31 x1000/uL (130-400)
[2021-03-06 07:04] LABS: MEAN PLATELET VOLUME 11.1 fl (7.4-10.4)
[2021-03-06] MEDS: FUROSEMIDE 20MG/2ML VIAL IVP SCH (09:15)
[2021-03-06] MEDS: FOLIC ACID/VITAMIN B COMP W-C TABLET PO SCH (09:15)
[2021-03-06] MEDS: PANTOPRAZOLE SODIUM 40 MG/VIAL IV SCH (09:15)
[2021-03-06 09:39] LABS: BG BASE EXCESS -10.4 mmol/L (-2.0-2.0); BG CARBOXYHEMOGLOBIN 0.7 % (0.5-1.5); BG DEOXYHEMOGLOBIN 9.7 % (0.0-5.0); BG FRACTION INSPIRED OXYGEN 100; BG HCO3 ACT 15.6 mmol/L (22.0-26.0); BG METHEMOGLOBIN 0.2 % (0.0-1.5); BG OXYGEN SATURATION 90.2 % (92.0-98.5); BG OXYHEMOGLOBIN 89.4 % (94.0-97.0); BG PH 7.267 (7.350-7.450); BG PO2 69.4 mmHg (75.0-100.0); BG TOTAL HEMOGLOBIN 10.7 g/dL (12.0-18.0); BG VENT MODE VENT - AC
[2021-03-06] MEDS ORDERED: IPRATROPIUM/ALBUTEROL 0.5-3(2.5)MG/3ML NEB HHN PRN (11:15)
[2021-03-06] MEDS: IPRATROPIUM BROMIDE (0.02%) 0.5MG/2.5ML NEB HHN SCH ×2 (12:28→21:09)
[2021-03-06] MEDS ORDERED: SODIUM BICARBONATE 8.4% 1 MEQ/ML 50ML SYR IV NR ×2 (15:30→23:00)
[2021-03-06] MEDS ORDERED: PHYTONADIONE 10MG/ML AMP SUBCUT NR (20:15)
[2021-03-06] MEDS: EPINEPHRINE 10 MG in SODIUM CHLORIDE 0.9% 240 ML IV PRN ×2 (20:42→22:45)
[2021-03-06] MEDS: DEXTROSE 50% WATER 50ML SYRINGE IV PRN ×3 (21:14→23:35)
[2021-03-06 21:45] LABS: BG BASE EXCESS -13.3 mmol/L (-2.0-2.0); BG CARBOXYHEMOGLOBIN 0.6 % (0.5-1.5); BG DEOXYHEMOGLOBIN 12.7 % (0.0-5.0); BG FRACTION INSPIRED OXYGEN 100; BG HCO3 ACT 12.7 mmol/L (22.0-26.0); BG METHEMOGLOBIN 0.4 % (0.0-1.5); BG OXYGEN SATURATION 87.2 % (92.0-98.5); BG OXYHEMOGLOBIN 86.3 % (94.0-97.0); BG PCO2 29.7 mmHg (35.0-45.0); BG PH 7.249 (7.350-7.450); BG PO2 65.4 mmHg (75.0-100.0); BG SAMPLE SITE RIGHT RADIAL; BG TOTAL HEMOGLOBIN 7.8 g/dL (12.0-18.0); BG VENT MODE VENT - AC
[2021-03-06] MEDS ORDERED: DEXT 10% WATER 1,000 ML IV SCH ×2 (21:45→23:00)
[2021-03-06] MEDS: BLOOD SUGAR DIAGNOSTIC STRIP TEST SCH (23:22)
[2021-03-07] VITALS (30 sets, daily range): BP systolic 59–143; BP diastolic 32–117
[2021-03-07] MEDS ORDERED: DEXT 10% WATER 1,000 ML IV SCH
[2021-03-07] MEDS: IPRATROPIUM BROMIDE (0.02%) 0.5MG/2.5ML NEB HHN SCH (00:30)
[2021-03-07] MEDS ORDERED: SODIUM BICARBONATE 100 MEQ in DEXT 10% WATER 1,000 ML IV SCH (01:00)
[2021-03-07] MEDS: NOREPINEPHRINE 32 MG in DEXT 5% WATER 218 ML IV PRN ×2 (02:10→09:31)
[2021-03-07] MEDS: VASOPRESSIN 20 UNIT in SODIUM CHLORIDE 0.9% 99 ML IV PRN (02:10)
[2021-03-07] MEDS: PHENYLEPHRINE 100 MG in DEXT 5% WATER 240 ML IV PRN (02:11)
[2021-03-07] MEDS: BLOOD SUGAR DIAGNOSTIC STRIP TEST SCH ×2 (04:00→08:19)
[2021-03-07] MEDS: LACTULOSE 20G/30ML UDC PO SCH (05:41)
[2021-03-07] MEDS: METOCLOPRAMIDE HCL 10MG/2ML VIAL IV SCH (05:41)
[2021-03-07] MEDS: EPINEPHRINE 10 MG in SODIUM CHLORIDE 0.9% 240 ML IV PRN ×3 (06:39→09:30)
[2021-03-07] MEDS: FUROSEMIDE 20MG/2ML VIAL IVP SCH (08:18)
[2021-03-07] MEDS: PANTOPRAZOLE SODIUM 40 MG/VIAL IV SCH (08:18)
[2021-03-07] MEDS: DEXTROSE 50% WATER 50ML SYRINGE IV PRN (08:18)
[2021-03-07] MEDS: FOLIC ACID/VITAMIN B COMP W-C TABLET PO SCH (08:18)
== END 2021-03-07 11:09 | DRG 870 ==
LOC: ER 15:50 → 5EST 22:20 → ENRESERV 02-25 00:34 → CVICU 02-28 04:48
PROVIDERS: ADMIT Internal Medicine; ATTEND Internal Medicine
PROC: 0W9G3ZZ Drainage of Peritoneal Cavity, Percutaneous Approach (ICD-10-PCS; 2021-02-24)
PROC: 05HY33Z Insertion of Infusion Device into Upper Vein, Percutaneous Approach (ICD-10-PCS; 2021-02-27)
PROC: B54MZZA Ultrasonography of Right Upper Extremity Veins, Guidance (ICD-10-PCS; 2021-02-27)
PROC: 5A1955Z Respiratory Ventilation, Greater than 96 Consecutive Hours (ICD-10-PCS; principal; 2021-02-28)
PROC: 0BH17EZ Insertion of Endotracheal Airway into Trachea, Via Natural or Artificial Opening (ICD-10-PCS; 2021-02-28)
PROC: 4A10X4Z Monitoring of Central Nervous Electrical Activity, External Approach (ICD-10-PCS; 2021-02-28)
DX: A41.9 Sepsis, unspecified organism (principal); E43 Unspecified severe protein-calorie malnutrition; R65.21 Severe sepsis with septic shock; G92.8 Other toxic encephalopathy; N17.0 Acute kidney failure with tubular necrosis; J18.9 Pneumonia, unspecified organism; J96.21 Acute and chronic respiratory failure with hypoxia; K72.00 Acute and subacute hepatic failure without coma; D68.9 Coagulation defect, unspecified; E87.1 Hypo-osmolality and hyponatremia; E87.2 Acidosis; Z66 Do not resuscitate; N18.9 Chronic kidney disease, unspecified; E87.70 Fluid overload, unspecified; R13.12 Dysphagia, oropharyngeal phase; K72.10 Chronic hepatic failure without coma; K70.31 Alcoholic cirrhosis of liver with ascites; D53.9 Nutritional anemia, unspecified; D63.8 Anemia in other chronic diseases classified elsewhere; D69.6 Thrombocytopenia, unspecified; Z20.822 Contact with and (suspected) exposure to COVID-19; E16.2 Hypoglycemia, unspecified; L89.156 Pressure-induced deep tissue damage of sacral region; E87.6 Hypokalemia; N83.8 Other noninflammatory disorders of ovary, fallopian tube and broad ligament; K52.9 Noninfective gastroenteritis and colitis, unspecified; K57.90 Diverticulosis of intestine, part unspecified, without perforation or abscess without bleeding; Z98.82 Breast implant status; Z68.32 Body mass index [BMI] 32.0-32.9, adult; Z71.41 Alcohol abuse counseling and surveillance of alcoholic
CPT/HCPCS: 36415; 36600; 71045; 74018; 74177; 76705; 76770; 76937; 80048; 80053; 80076; 80202; 80307; 80320; 80329; 82105; 82140; 82248; 82375; 82378; 82390; 82550; 82607; 82728; 82746; 82805; 82962; 83540; 83550; 83605; 83735; 84100; 84439; 84443; 84478; 84484; 85014; 85018; 85025; 85027; 85044; 85049; 85384; 86301; 86705; 86709; 86803; 86850; 86900; 86920; 86927; 87070; 87075; 87340; 93970; 93971; 94640; 94660; 99285; C1725; C9113; J0360; J0692; J0696; J1630; J1940; J2060; J2370; J2543; J2765; J3010; J3370; J3411; J3430; J3480; J3490; J7040; J7050; J7060; J7070; P9016; P9017; P9034; Q9967; U0003; U0005; A4315; G0480